=== PATIENT | female | born 1980 | race Two or more races ===

== ENCOUNTER 2017-02-04 11:41 | Emergency (ER) | payer MEDICAID ==
[~2017-02-04] VITALS: Ht 170.2 cm; Wt 106.1 kg
[2017-02-04 13:02] VITALS: BP 138/74
[2017-02-04] MEDS ORDERED: CEFTRIAXONE 1,000 MG IM ONE (13:30)
[2017-02-04] MEDS ORDERED: CEFTRIAXONE 1,000 MG ONE (13:33)
== END 2017-02-04 13:50 | disposition home or self-care (01) ==
LOC: ED 12:54
DX: N30.91 Cystitis, unspecified with hematuria (principal); E11.9 Type 2 diabetes mellitus without complications
CPT/HCPCS: 81001; 96372; 99283; J0696

== ENCOUNTER 2019-03-25 12:51 | Outpatient (CLI) | payer MEDICAID, OTHER ==
[2019-03-25 13:47] LABS: BASOPHILS # (AUTO) 0.03 x10^3/uL (0-0.1); BASOPHILS % (AUTO) 0 % (0-1); EOSINOPHILS # (AUTO) 0.11 x10^3/uL (0-0.4); EOSINOPHILS % (AUTO) 1 % (1-7); LYMPHOCYTES # (AUTO) 3.49 x10^3/uL (1-3.4); LYMPHOCYTES % (AUTO) 36 % (22-44); MD NO; MEAN CORPUSCULAR HEMOGLOBIN 30.3 pg (27.0-34.8); MEAN CORPUSCULAR HGB CONC 32.9 g/dL (32.4-35.8); MEAN CORPUSCULAR VOLUME 91.9 fL (80-100); MEAN PLATELET VOLUME 8.1 fL (7.4-10.4); MONOCYTES # (AUTO) 0.78 x10^3/uL (0.2-0.8); MONOCYTES % (AUTO) 8 % (2-9); NEUTROPHILS # (AUTO) 5.39 x10^3/uL (1.8-6.8); NEUTROPHILS % (AUTO) 55 % (42-75); PLATELET COUNT 301 x10^3/uL (130-400); RED BLOOD COUNT 4.41 x10^6/uL (3.82-5.3); RED CELL DISTRIBUTION WIDTH 15.1 % (9.6-15.2)
[2019-03-25 13:55] LABS: CULTURE INDICATED? NO; MICROSCOPIC NOT IND
[2019-03-25 13:56] LABS: ALBUMIN 3.5 g/dL (3.4-5.0); ANION GAP 6 mmol/L (5-15); CALCIUM 8.2 mg/dL (8.5-10.1); CHLORIDE 107 mmol/L (98-107)
[2019-03-25 14:01] LABS: ALKALINE PHOSPHATASE 58 U/L (45-117); BILIRUBIN,TOTAL 0.5 mg/dL (0.2-1.0); CREATININE 0.58 mg/dL (0.55-1.02)
[2019-03-25] MEDS ORDERED: EMPA1TAB19 PO (14:04)
[2019-03-25 14:05] LABS: ALANINE AMINOTRANSFERASE 25 U/L (12-78)
== END 2019-03-25 23:59 | disposition home or self-care (01) ==
LOC: STAR 12:51
PROVIDERS: ATTEND Obstetrics & Gynecology Gynecology
DX: Z01.818 Encounter for other preprocedural examination (principal); N92.0 Excessive and frequent menstruation with regular cycle
CPT/HCPCS: 36415; 80053; 81003; 84703; 85025; 93005